=== PATIENT | female | born 1985 ===

== ENCOUNTER 2022-09-20 16:26 | Emergency (ER) | payer OTHER ==
[~2022-09-20] VITALS: Ht 160 cm; Wt 77.6 kg
[2022-09-20] MEDS ORDERED: BACLOFEN 10 MG TABLET PO ONE (21:00)
[2022-09-20] MEDS ORDERED: LIDOCAINE 5% TRANSDERMAL PATCH TD ONE (21:00)
[2022-09-20] MEDS ORDERED: ACETAMINOPHEN 500 MG TABLET PO ONE (21:00)
[2022-09-20] MEDS ORDERED: IBUPROFEN 600 MG TABLET PO ONE (21:00)
[2022-09-20] MEDS ORDERED: BACL10TA PO (22:17)
[2022-09-20] MEDS ORDERED: IBUP-2070 PO (22:18)
[2022-09-20] MEDS ORDERED: ACET-3385 PO (22:19)
[2022-09-20 22:30] VITALS: BP 127/73
== END 2022-09-20 22:53 | disposition home or self-care (01) ==
LOC: EMS 16:28
DX: M54.6 Pain in thoracic spine (principal); R07.89 Other chest pain; I10 Essential (primary) hypertension; V98.8XXA Other specified transport accidents, initial encounter; Y93.89 Activity, other specified; Y92.89 Other specified places as the place of occurrence of the external cause; Y99.8 Other external cause status
CPT/HCPCS: 71046; 93005; 99284